=== PATIENT | female | born 1955 | race Caucasian/White ===

== ENCOUNTER → 2018-08-28 | Outpatient (CLI) | payer OTHER ==
[2018-08-28 10:56] LABS: BASOPHILS ABSOLUTE AUTO 0.07 K/mm3 (0.00-0.23); BASOPHILS PERCENT AUTO 1 % (0-2); EOSINOPHILS ABSOLUTE AUTO 0.08 K/mm3 (0.00-0.68); EOSINOPHILS PERCENT AUTO 1 % (0-6); Hematocrit 42.5 % (33.0-51.0); Hemoglobin 14.6 g/dL (11.5-16.0); IMMATURE GRAN ABSOLUTE AUTO 0.01 K/mm3 (0.00-0.10); IMMATURE GRAN PERCENT AUTO 0 % (0-1); LYMPHOCYTES ABSOLUTE AUTO 2.38 K/mm3 (0.84-5.20); LYMPHOCYTES PERCENT AUTO 40 % (21-46); MONOCYTES ABSOLUTE AUTO 0.65 K/mm3 (0.16-1.47); MONOCYTES PERCENT AUTO 11 % (4-13); Mean Corpuscular HGB 30.8 pg (26.0-34.0); Mean Corpuscular HGB Conc 34.4 g/dL (31.5-36.5); Mean Corpuscular Volume 90 fL (80-100); Mean Platelet Volume 10.6 fL (9.1-12.4); NEUTROPHILS ABSOLUTE AUTO 2.84 K/mm3 (1.96-9.15); NEUTROPHILS PERCENT AUTO 47 % (41-73); Platelet Count 304 K/mm3 (150-400); RDW Coefficient Variation 13.4 % (11.7-14.2); Red Blood Cell Count 4.74 M/mm3 (3.80-5.20); White Blood Cell Count 6.03 K/mm3 (4.00-11.30)
[2018-08-28 11:27] LABS: Alanine Aminotransfer (ALT/SGP 24 U/L (12-78); Albumin, Blood 3.9 g/dL (3.4-5.0); Albumin/Globulin Ratio 0.8 (0.8-1.8); Alk Phos 111 U/L (40-126); Anion Gap 10 mmol/L (6-16); Aspartate Aminotrans (AST/SGOT 25 U/L (12-37); Bilirubin, Total 0.5 mg/dL (0.1-1.0); Blood Urea Nitrogen 10 mg/dL (8-24); Bun/Creatinine Ratio 11.9 (12.0-20.0); CO2, Blood 27 mmol/L (21-32); Chloride, Blood 102 mmol/L (98-108); Creatinine, Blood 0.84 mg/dL (0.40-1.00); Globulin, Blood 4.9 g/dL (2.2-4.0); Glomerular Filtration Rate >60 (60-); Glucose, Blood 98 mg/dL (70-99); Potassium, Blood 3.9 mmol/L (3.5-5.5); Sodium, Blood 139 mmol/L (136-145); Total Protein, Blood 8.8 g/dL (6.4-8.2)
== END ==
LOC: LAB EV 10:51 → LAB SHORT 10:51
PROVIDERS: Nurse Practitioner
DX: R03.0 Elevated blood-pressure reading, without diagnosis of hypertension (principal)
CPT/HCPCS: 80053; 85025

== ENCOUNTER → 2019-04-20 | Outpatient (CLI) | payer OTHER | END | disposition home or self-care (01) | LOC: LAB SHORT 19:21 → LAB 19:21 | PROVIDERS: Physician Assistant | DX: Z12.4 Encounter for screening for malignant neoplasm of cervix (principal) | CPT/HCPCS: 87624; G0145 ==

== ENCOUNTER → 2021-08-15 | Outpatient (CLI) | payer OTHER | END | disposition home or self-care (01) | LOC: LAB SHORT 11:08 | DX: D48.5 Neoplasm of uncertain behavior of skin (principal) | CPT/HCPCS: 88305 ==

== ENCOUNTER 2023-04-24 10:38 | Day surgery (SDC) | payer OTHER ==
[~2023-04-24] VITALS: Ht 154.9 cm; Wt 62.7 kg
[2023-04-24] MEDS ORDERED: HYDCHL12.5 (10:52)
[2023-04-24] MEDS ORDERED: ZESTRIL40 M2 (10:53)
[2023-04-24] MEDS ORDERED: OMEP20ER (10:53)
[2023-04-24] MEDS ORDERED: ALEN70 (10:53)
[2023-04-24] MEDS ORDERED: ATOR40TA (10:53)
--- NOTE | 2023-04-24 10:57 | NUR ---
04/24/23 1057 Teresa Hernandez TETRACAINE TO LEFT EYE AT 1054 PLEDGET TO LEFT EYE AT 1055 BY [facility].[email or web address]
[2023-04-24 12:29] VITALS: BP 125/90
--- NOTE | 2023-04-24 12:34 | NUR ---
04/24/23 1234 Giancarlo Garza IV REMOVED INTACT. SITE WNL.
== END 2023-04-24 12:41 | disposition home or self-care (01) ==
LOC: ORSCSDS 10:38
PROVIDERS: Ophthalmology
PROC: 08RK3JZ Replacement of Left Lens with Synthetic Substitute, Percutaneous Approach (ICD-10-PCS; principal; 2023-04-24 12:00)
DX: H25.13 Age-related nuclear cataract, bilateral (principal); I10 Essential (primary) hypertension; K21.9 Gastro-esophageal reflux disease without esophagitis; E78.5 Hyperlipidemia, unspecified; Z79.899 Other long term (current) drug therapy
CPT/HCPCS: J2001; J2250; J3301; J7040; V2632

== ENCOUNTER 2024-05-28 22:25 | Emergency (ER) | payer OTHER ==
[~2024-05-28] VITALS: Ht 154.9 cm; Wt 61.2 kg
[~2024-05-28 22:25] MED LIST: ALEN70; ATOR40TA; HYDCHL12.5; OMEP20ER; ZESTRIL40 M2
[2024-05-28 22:35] VITALS: BP 166/96
== END 2024-05-28 23:18 | disposition home or self-care (01) ==
LOC: ER 22:25
DX: S90.111A Contusion of right great toe without damage to nail, initial encounter (principal); W22.8XXA Striking against or struck by other objects, initial encounter; Z88.5 Allergy status to narcotic agent; Z91.030 Bee allergy status; Z79.899 Other long term (current) drug therapy; I10 Essential (primary) hypertension; K21.9 Gastro-esophageal reflux disease without esophagitis
CPT/HCPCS: 73660; 99283-25

== ENCOUNTER 2024-12-02 10:22 | Day surgery (SDC) | payer OTHER ==
[~2024-12-02] VITALS: Ht 157.5 cm; Wt 64.2 kg
[~2024-12-02 10:22] MED LIST changes: +Balanced Salt Epinephrine Irrigation Solution 500 mL IR SCH; +Lidocaine HCl/Pf 1% 5 ML VIAL XX SCH; +Moxifloxacin HCL 0.5 MG/0.1 ML 0.4MLSYR RIGHTEYE SCH; +PHENYLEPHRINE\\TROPICAMIDE\\TETRACAINE OPHTHALMIC DILATING SOLN RIGHTEYE PRN; +Povidone-Iodine 450 DROP/30 ML Solution ONE; +Povidone-Iodine 450 DROP/30 ML Solution RIGHTEYE SCH; +Tetracaine HCl/Pf 0.5% Opth Soln 4 ml ONE; +Triamcinolone Inj Susp 40 MG / ML 1ML Vial INJ SCH; +Triamcinolone Inj Susp 40 MG / ML 1ML Vial ONE
[2024-12-02] MEDS ORDERED: AMLODIPINE BESYL5 MG PO (11:19)
[2024-12-02] MEDS ORDERED: NS 500 ML IV ONE (11:31)
[2024-12-02] MEDS ORDERED: FentaNYL Citrate 50 MCG/ML 2 ML Injection ONE (11:35)
[2024-12-02] MEDS ORDERED: Midazolam HCl 1MG / ML 2ML Vial ONE (11:35)
[2024-12-02 12:22] VITALS: BP 118/66
--- NOTE | 2024-12-02 12:22 | NUR ---
12/02/[address] at bedside
== END 2024-12-02 12:42 | disposition home or self-care (01) ==
LOC: ORSCSDS 10:22
PROVIDERS: Ophthalmology
PROC: 08RJ3JZ Replacement of Right Lens with Synthetic Substitute, Percutaneous Approach (ICD-10-PCS; principal; 2024-12-02 12:00)
DX: H25.811 Combined forms of age-related cataract, right eye (principal); Z96.1 Presence of intraocular lens; E78.5 Hyperlipidemia, unspecified; I10 Essential (primary) hypertension; K21.9 Gastro-esophageal reflux disease without esophagitis; Z79.899 Other long term (current) drug therapy
CPT/HCPCS: J2250; J3010; J3301; V2632